=== PATIENT | male | born 2000 | race Caucasian/White ===

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

== ENCOUNTER 2020-08-11 09:50 | Inpatient (IN) ==
[2020-08-11 10:59] LABS: ABS Basophils 0.1 10^3/ul (0-0.2); ABS Eosinophils 0.4 10^3/ul (0-0.6); ABS Lymphocytes 1.4 10^3/ul (1.0-4.8); ABS Monocytes 0.4 10^3/ul (0-0.8); ABS Neutrophils 2.9 10^3/ul (1.5-7.7); Eosinophil % 7.2 %; Hematocrit 38 % (42-52); Hemoglobin 12.8 g/dL (14.0-18.0); Lymphocyte % 26.4 %; Mean Corpuscular HGB Conc 34 g/dL (31-36); Mean Corpuscular Hemoglobin 31 pg (27-31); Mean Corpuscular Volume 90 fL (80-94); Mean Platelet Volume 10.3 fL (7.4-10.4); Nucleated Red Blood Cells % 0.1; Platelet Count 163 10^3/uL (150-450); Red Cell Distribution Width 13 % (10-15); White Blood Count 5.1 10^3/uL (3.5-10.8)
[2020-08-11 11:28] LABS: ALT 10 U/L (7-52); AST 15 U/L (13-39); Albumin 4.2 g/dL (3.2-5.2); Albumin/Globulin Ratio 1.6 (1-3); Alkaline Phosphatase 32 U/L (34-104); Anion Gap 6 mmol/L (2-11); BUN/Creatinine Ratio 14.8 (8-20); Blood Urea Nitrogen 12 mg/dL (6-24); CO2 Carbon Dioxide 24 mmol/L (22-32); Chloride 107 mmol/L (101-111); EGFR African American 145.6 (>60); EGFR Non-African American 120.3 (>60); Globulin 2.7 g/dL (2-4); Glucose 96 mg/dL (70-100); Potassium 3.6 mmol/L (3.5-5.0); Sodium 137 mmol/L (135-145); Total Protein 6.9 g/dL (6.4-8.9)
[2020-08-11 11:41] LABS: Acetaminophen < 15 mcg/mL; Alcohol, S < 10 mg/dL (<10); Salicylate < 2.50 mg/dL (<30)
[2020-08-11 11:54] LABS: TSH Ultra Thyroid Stim Horm 2.18 mcIU/mL (0.34-5.60)
[2020-08-11 12:27] LABS: Urine Appearance Cloudy; Urine Bilirubin Negative (Negative); Urine Blood Negative (Negative); Urine Color Yellow; Urine Glucose Negative (Negative); Urine Ketones Trace (Negative); Urine Nitrite Negative (Negative); Urine Protein Negative (Negative); Urine Urobilinogen Negative (Negative)
[2020-08-11 12:53] LABS: Urine Benzodiazepine Screen None Detected (None Detect); Urine Cannabinoids Screen Presumptive Positive (None Detect); Urine Opiates Screen None Detected (None Detect)
[2020-08-11] MEDS ORDERED: Al Hydrox/Mg Hydrox/Simet LIQ 30 ML UDC PO PRN (17:33)
[2020-08-11] MEDS ORDERED: CMCS: Estradiol 1 mg TAB (NF) PO SCH (21:00)
[2020-08-11] MEDS ORDERED: [UNRECOGNIZED DRUG - OTHER] PO SCH (21:00)
[2020-08-11] MEDS ORDERED: ESTRADIOL 2 MG PO SCH (22:30)
[2020-08-12] MEDS: ESTRADIOL 2 MG PO SCH ×4 (02:00→21:07)
[2020-08-12] MEDS: [UNRECOGNIZED DRUG - OTHER] PO SCH ×2 (02:01→21:09)
[2020-08-12] MEDS: SPIRONOLACTONE 100 MG PO SCH ×3 (02:01→21:08)
[2020-08-12] MEDS: Vitamin THERAPEUTIC TAB PO SCH (08:54)
[2020-08-12] MEDS ORDERED: Influenza VAC *QUAD* 2020-21* 0.5 ML SYRINGE IM ONE (09:00)
[2020-08-13 08:42] LABS: HDL Cholesterol 68.3 mg/dL
[2020-08-13] MEDS: Vitamin THERAPEUTIC TAB PO SCH (09:23)
[2020-08-13] MEDS: ESTRADIOL 2 MG PO SCH ×3 (09:24→20:51)
[2020-08-13] MEDS: SPIRONOLACTONE 100 MG PO SCH ×2 (09:25→20:53)
[2020-08-13] MEDS: [UNRECOGNIZED DRUG - OTHER] PO SCH (20:51)
[2020-08-14] MEDS: Vitamin THERAPEUTIC TAB PO SCH (09:15)
[2020-08-14] MEDS: ESTRADIOL 2 MG PO SCH ×3 (09:16→21:07)
[2020-08-14] MEDS: SPIRONOLACTONE 100 MG PO SCH ×2 (09:16→21:09)
[2020-08-14] MEDS: [UNRECOGNIZED DRUG - OTHER] PO SCH (21:08)
[2020-08-15] MEDS: ESTRADIOL 2 MG PO SCH ×3 (09:16→20:06)
[2020-08-15] MEDS: SPIRONOLACTONE 100 MG PO SCH ×2 (09:16→20:05)
[2020-08-15] MEDS: Vitamin THERAPEUTIC TAB PO SCH (09:16)
[2020-08-15] MEDS: [UNRECOGNIZED DRUG - OTHER] PO SCH (20:05)
[2020-08-16] MEDS: Vitamin THERAPEUTIC TAB PO SCH (10:06)
[2020-08-16] MEDS: ESTRADIOL 2 MG PO SCH ×3 (10:07→23:36)
[2020-08-16] MEDS: SPIRONOLACTONE 100 MG PO SCH ×2 (10:08→20:32)
[2020-08-16] MEDS: [UNRECOGNIZED DRUG - OTHER] PO SCH (20:30)
[2020-08-17] MEDS: SPIRONOLACTONE 100 MG PO SCH (09:00)
[2020-08-17] MEDS: ESTRADIOL 2 MG PO SCH (09:01)
[2020-08-17] MEDS: Vitamin THERAPEUTIC TAB PO SCH (09:02)
[2020-08-17 09:22] VITALS: BP 108/69
== END 2020-08-17 14:00 | disposition home or self-care (01) | DRG 751 ==
LOC: ED 09:50 → BSU 15:47
PROVIDERS: ADMIT Psychiatry & Neurology Addiction Psychiatry; ATTEND Psychiatry & Neurology Psychiatry